=== PATIENT | female | born 1935 | race Caucasian/White ===

== ENCOUNTER → 2023-09-20 10:17 | Outpatient (REF) | payer MEDICARE, OTHER, SELFPAY | LOC: RAD 10:17 | PROVIDERS: ATTENDING PHYSICIAN Nurse Practitioner Adult Health; FAMILY PHYSICIAN Family Medicine | DX: R60.0 Localized edema (principal) | CPT/HCPCS: 93970 ==

== ENCOUNTER → 2023-12-27 07:29 | Outpatient (REF) | payer MEDICARE, OTHER, SELFPAY | LOC: RAD 07:29 | PROVIDERS: ATTENDING PHYSICIAN Nurse Practitioner Adult Health; FAMILY PHYSICIAN Family Medicine | DX: M79.675 Pain in left toe(s) (principal); Z91.81 History of falling | CPT/HCPCS: 73630 ==

== ENCOUNTER 2024-03-18 14:48 | Emergency (ER) | payer MEDICARE, OTHER, SELFPAY ==
[2024-03-18 14:50] VITALS: BP 152/79
[2024-03-18 15:09] LABS: % Basophils 0.4 % (0-2); % Immature Granulocytes 0.4 % (0-0.5); % Lymphocytes 13.3 % (20.5-51.1); % Monocytes 2.8 % (1.7-9.3); % Neutrophils 83.1 % (42.2-75.2); Absolute Monocytes 0.2 10^3/uL (0.1-0.6); Absolute Neutrophils 5.9 10^3/uL (1.4-6.5); Hematocrit 35.6 % (37.0-47.0); Hemoglobin 11.2 g/dL (12.0-16.0); Mean Corp Hgb Conc. 31.5 g/dL (33.0-37.0); Mean Corpuscular Hgb 27.5 pg (27.0-31.0); Mean Corpuscular Volume 87.3 fL (81.0-99.0); Mean Platelet Volume 9.5 fL (7.4-10.4); Nucleated Red Blood Cells % 0 %; Platelet Count 242 10^3/uL (130-400); Red Blood Cell Count 4.08 10^6/uL (4.20-5.40); Red Cell Dist. Width 15.1 % (11.5-14.5); White Blood Cell Count 7.2 10^3/uL (4.8-10.8)
[2024-03-18 15:24] LABS: ALT (SGPT) 121 U/L (0-35); AST (SGOT) 72 U/L (14-36); Albumin 4.1 g/dl (3.5-5.0); Alkaline Phosphatase 154 U/L (38-126); Blood Urea Nitrogen 35 mg/dl (7-17); Carbon Dioxide 23 mmol/L (22-30); Chloride 107 mmol/L (98-107); Glucose 145 mg/dl (70-99); Potassium 3.9 mmol/L (3.5-5.1); Sodium 141 mmol/L (135-145); Total Protein 6.9 g/dl (6.3-8.2); eGFR 54.53
[2024-03-18 17:32] VITALS: BMI 21.8
[2024-03-18 17:36] VITALS: BP 146/62
--- NOTE | 2024-03-18 17:55 | ED.GENMED ---
History of Present Illness
<Mercy Mg MD, Resident - Last Filed: 03/18/24 19:46>
General
Chief Complaint: Abdominal Symptoms
Time Seen by Provider: 03/18/24 17:24
History of Present Illness
History of Present Illness:
89 y/o female with pmhx of CKD stage III, HLp and hyperthyroidism presenting to the ED with nausea/vomiting and chest heaviness. Patient notes she woke up last night from sleep with pain in her upper back and diaphoresis. States has had similar pain
in that location before. This morning, she was feeling nauseous and had three episodes of vomiting and chills. Patient denies abdominal pain but notes has had non-bloody loose stools. This afternoon, she had chest heaviness across both hemithoraces
and pain under her diaphragm that gets worse with coughing. Patient denies fever, recent travel, recent surgery, urinary symptoms. States gets short of breath with exertion and feels like that with stress and also because of her thyroid disease.
Patient has not been taking her thyroid medication for the past few weeks after an increase in her liver enzymes. Of note, patient's was admitted here with CAUTI and tested positive for norovirus.
Past History
<Mercy Mg MD, Resident - Last Filed: 03/18/24 19:46>
Past History
ED Past Medical History: Hypercholesterolemia, Renal failure and Hyperthyroidism
Review of Systems
<Mercy Mg MD, Resident - Last Filed: 03/18/24 19:46>
Review of Systems
Constitutional: Reports night sweats and chills
EENT: Reports no symptoms
Respiratory: Reports no symptoms
Cardiac: Reports other (chest heaviness)
ABD/GI: Reports nausea, vomiting and diarrhea
: Reports no symptoms
Musculoskeletal: Reports no symptoms
Skin: Reports no symptoms
Neurological: Reports no symptoms
Endocrine: Reports no symptoms
Hematologic/Lymphatic: Reports no symptoms
Psychiatric: Reports no symptoms
Phy Exam
<Mercy Mg MD, Resident - Last Filed: 03/18/24 19:46>
Physical Exam
Physical Exam:
GENERAL: Alert, awake, in no apparent distress. Patient lying on the bed comfortably.
EYE: pupils equal and reactive.
NECK: Supple, no significant adenopathy.
ENT: o/p clr, mmm.
CARDIAC: Regular rate and rhythm.
LUNGS: Clear breath sounds bilaterally, no acute respiratory distress, no wheezes/rales/rhonchi.
ABDOMEN: Soft, upper abdominal tenderness, no r/g, no cvat.
NEUROLOGICAL: Alert and oriented, no focal neuro deficits.
SKIN: Warm and dry, skin intact.
MUSCULOSKELETAL: No edema, well perfused.
PSYCH: Normal and appropriate interaction.
Course
<Mercy Mg MD, Resident - Last Filed: 03/18/24 19:46>
Orders/Labs/Results
Orders:
Orders
03/18/24 14:53
Electrocardiogram (*1) Urgent
Reason for Study: Abdominal Pain
EKG- Treatment ONCE
03/18/24 15:00
Complete Blood Count/With Diff Urgent
Comprehensive Metabolic Panel Urgent
Free T4 Urgent
TSH Reflex To Free T4 Urgent
03/18/24 17:50
0.9% Sodium Chloride 1000 ml [Nss] 1,000 ml IV BOLUS
Ondansetron Injectable [Zofran] 4 mg IV NOW STA
03/18/24 17:56
Troponin I Urgent
03/18/24 18:37
Add On- LAB Urgent
Comments:: TSH reflex to Free T4
Tests Added?: TSH reflex to Free T4
Abnormal Lab Results
03/18/24
15:00
RBC 4.08 L 10^6/uL
(4.20-5.40)
Hgb 11.2 L g/dL
(12.0-16.0)
Hct 35.6 L %
(37.0-47.0)
MCHC 31.5 L g/dL
(33.0-37.0)
RDW 15.1 H %
(11.5-14.5)
Absolute Lymphs (auto) 1.0 L 10^3/uL
(1.2-3.4)
Neutrophils % 83.1 H %
(42.2-75.2)
Lymphocytes % 13.3 L %
(20.5-51.1)
BUN 35 H mg/dl
(7-17)
Glucose 145 H mg/dl
(70-99)
AST 72 H U/L
(14-36)
ALT 121 H U/L
(0-35)
Alkaline Phosphatase 154 H U/L
(38-126)
TSH (Reflex) < 0.02 L uIU/ml
(0.47-4.68)
03/18/24 15:00
03/18/24 15:00
Vital Signs
Initial and Last Documented VS:
Initial Vital Signs
Temp Pulse Resp BP Pulse Ox
97.9 F 100 16 152/79 100
03/18/24 14:50 03/18/24 14:50 03/18/24 14:50 03/18/24 14:50 03/18/24 14:50
Last Documented Vital Signs
Temp Pulse Resp BP Pulse Ox
98.9 F 83 24 134/61 100
03/18/24 17:36 03/18/24 19:15 03/18/24 19:15 03/18/24 19:00 03/18/24 19:15
<Bettye Damon DO - Last Filed: 03/18/24 20:18>
Orders/Labs/Results
Orders:
Orders
03/18/24 14:53
Electrocardiogram (*1) Urgent
Reason for Study: Abdominal Pain
EKG- Treatment ONCE
03/18/24 15:00
Complete Blood Count/With Diff Urgent
Comprehensive Metabolic Panel Urgent
Free T4 Urgent
TSH Reflex To Free T4 Urgent
03/18/24 17:50
0.9% Sodium Chloride 1000 ml [Nss] 1,000 ml IV BOLUS
Ondansetron Injectable [Zofran] 4 mg IV NOW STA
03/18/24 17:56
Troponin I Urgent
03/18/24 18:37
Add On- LAB Urgent
Comments:: TSH reflex to Free T4
Tests Added?: TSH reflex to Free T4
Abnormal Lab Results
03/18/24
15:00
RBC 4.08 L 10^6/uL
(4.20-5.40)
Hgb 11.2 L g/dL
(12.0-16.0)
Hct 35.6 L %
(37.0-47.0)
MCHC 31.5 L g/dL
(33.0-37.0)
RDW 15.1 H %
(11.5-14.5)
Absolute Lymphs (auto) 1.0 L 10^3/uL
(1.2-3.4)
Neutrophils % 83.1 H %
(42.2-75.2)
Lymphocytes % 13.3 L %
(20.5-51.1)
BUN 35 H mg/dl
(7-17)
Glucose 145 H mg/dl
(70-99)
AST 72 H U/L
(14-36)
ALT 121 H U/L
(0-35)
Alkaline Phosphatase 154 H U/L
(38-126)
TSH (Reflex) < 0.02 L uIU/ml
(0.47-4.68)
03/18/24 15:00
03/18/24 15:00
Vital Signs
Initial and Last Documented VS:
Initial Vital Signs
Temp Pulse Resp BP Pulse Ox
97.9 F 100 16 152/79 100
03/18/24 14:50 03/18/24 14:50 03/18/24 14:50 03/18/24 14:50 03/18/24 14:50
Last Documented Vital Signs
Temp Pulse Resp BP Pulse Ox
98.9 F 83 24 134/61 100
03/18/24 17:36 03/18/24 19:15 03/18/24 19:15 03/18/24 19:00 03/18/24 19:15
<Mercy Mg MD, Resident - Last Filed: 03/18/24 19:46>
MDM/Problems Addressed
Differential Diagnosis Includes:
ACS
PE
Cholelithiasis
Pancreatitis
Gastroenteritis
MDM/Problems Addressed:
- EKG, troponin
- IVF, Zofran
- CBC, CMP, Lipase
- Abd/pelvis CT
<Mercy Mg MD, Resident - Last Filed: 03/18/24 19:46>
*Critical Care Note
Total Time (30-74mins, 75-104mins- exclusive of procedures): Not Applicable
ED Attending Note
<Mercy Mg MD, Resident - Last Filed: 03/18/24 19:46>
-
Portions of this chart may have been created with voice recognition software.� Occasional wrong word or��sound alike� substitutions may have occurred due to the inherent limitations of voice recognition software.
<Bettye Damon DO - Last Filed: 03/18/24 20:18>
ED Attending Note
Patient seen and examined by attending physician: Yes
I performed the substantive portion of visit, reviewed & personally made and approve the management plan that is documented in note by myself or MARCIE.: Yes
I performed a history and physical exam of patient and discussed management with resident, I reviewed resident's note and agree with documented findings and plan of care.: Yes
ED Attending Note:
89-year-old female with history of chronic kidney disease, hyperlipidemia, hypothyroidism presenting to the emergency department for nausea, vomiting, diarrhea, chest heaviness. Patient reports symptoms started last night. Also reported some pain
in her back. Reports the back pain is chronic, however the vomiting or diarrhea as of this morning was new. She also noted some chills. Reports that her has had some similar symptoms with diarrhea, recently admitted to the hospital with urosepsis
and also incidentally found to have norovirus. Denies any blood in stool. Denies any cough or abdominal pain. Vital signs significant for mild hypertension.
On exam, patient is resting comfortably, no acute distress or discomfort. Patient is nontoxic in appearance. EKG obtained on arrival, sinus rhythm without acute evidence of ischemia or significant change from prior. The chest pressure is overall
improved, lower suspicion for ACS time. Abdomen is soft, nondistended, nontender. Given patient's symptoms and exposure to a known positive patient with norovirus, suspected norovirus. Patient without any clinical signs of severe dehydration.
Plan for screening laboratory analysis as well as troponin. Will treat patient therapeutically with Zofran and fluids.
19:30 - Patient's labs are relatively unremarkable with the exception of elevated liver function. Patient reports that this is known, was on a medication for her thyroid, was taken off of it last week given elevation of her liver function and
suspected medication reaction. No focal tenderness to the right upper quadrant or elevation of bilirubin, without concern for significant acute liver dysfunction. Troponin is negative. Pending TSH, however otherwise remains hemodynamically stable
with plan for outpatient supportive therapy
20:10 -patient reporting symptom improvement. TSH undetectable, however free T4 within normal limits. At this time feel stable for discharge with continued outpatient follow-up and management of her thyroid disease and supportive care for her
gastroenteritis. Return precautions discussed and patient verbalized understanding
Discharge Plan
Departure
Prescriptions:
No Action
cholecalciferol (vitamin D3) [Vitamin D3] 400 UNITS tablet
1,000 units PO DAILY
mrjebtnhftpc-Wo-tkqn-minerals [One Daily Women's] 1 EACH tablet
2 tab PO DAILY
coenzyme Q10 [Co Q-10] 200 MG capsule
200 mg PO DAILY
calcium carbonate-vitamin D3 1 EACH capsule
1 cap PO DAILY
biotin 5,000 MCG tablet,disintegrating
5,000 mcg PO DAILY
Fiber Gummies
1 gum PO DAILY
magnesium oxide 400 MG tablet
400 mg PO DAILY
mupirocin 1 APPLIC ointment
1 applic intranasal BID Qty: 1 0RF
Patient Comments:
bidx3 days, last dose this am 07/26
sennosides [senna] 1 TABLET tablet
2 tab PO BID 0RF
aspirin 325 MG tablet
325 mg PO DAILY Qty: 28 0RF
Rx Instructions:
Take daily x4 weeks for blood clot prevention.
magnesium hydroxide 30 ML suspension
30 ml PO DAILYPRN PRN (Reason: constipation) Qty: 7 0RF
Rx Instructions:
Take as needed for constipation unrelieved by Colace and Senna.
docusate sodium 100 MG capsule
100 mg PO BID 0RF
gabapentin 100 MG capsule
200 mg PO TID Qty: 30 0RF
acetaminophen 500 MG tablet
1,000 mg PO Q6H Qty: 60 0RF
Rx Instructions:
Do not exceed >4000 mg daily.
oxycodone 5 MG tablet
5 mg PO Q6HPRN PRN (Reason: moderate-severe pain) Qty: 30 0RF
Rx Instructions:
1 tab moderate pain or 2 if pain severe
Dx total joint replacement
ongoing therapy
famotidine 20 MG tablet
20 mg PO HS Qty: 30 0RF
Rx Instructions:
Take nightly while on Aspirin.
amlodipine-olmesartan 1 EACH tablet
1 tab PO DAILY Qty: 0 0RF
Rx Instructions:
Hold if systolic blood pressure <130 while on Oxycodone.
turmeric 400 MG capsule
1,000 mg PO DAILY Qty: 0 0RF
Rx Instructions:
Resume in 1 week.
Referrals:
Tiny Vigil MD [Family Provider] -
Interventions
Interventions:
*Risk Screen - Suicide Last Done: 03/18/24 14:50
*General Assessment Last Done: 03/18/24 14:50
*Neglect/Abuse Screening Last Done: 03/18/24 14:50
*ED COVID-19 Vaccine History Last Done: 03/18/24 17:46
LV-Vdilgu-Ojhmvworze Assessment Last Done: 03/18/24 17:46
Discharge Date and Time
Print Language: KYRGYZ
[2024-03-18 18:00] VITALS: BP 128/53
[2024-03-18] MEDS: NSS 1000 IV (18:01)
[2024-03-18] MEDS: ZOFRAN 4 MG IV (18:03)
[2024-03-18 18:29] LABS: Troponin I < 0.012 ng/ml
[2024-03-18 19:00] VITALS: BP 134/61
[2024-03-18 19:40] LABS: TSH Reflex To Free T4 < 0.02 uIU/ml (0.47-4.68)
[2024-03-18 20:00] VITALS: BP 124/57
[2024-03-18 20:11] LABS: Free T4 1.45 ng/dl (0.78-2.19)
== END 2024-03-18 20:55 | disposition home or self-care (01) ==
LOC: EMR 14:48
PROVIDERS: Physician Assistant; EMERGENCY PHYSICIAN Student in an Organized Health Care Education/Training Program; FAMILY PHYSICIAN Family Medicine
DX: K52.9 Noninfective gastroenteritis and colitis, unspecified (principal); R07.89 Other chest pain; N18.30 Chronic kidney disease, stage 3 unspecified; E78.00 Pure hypercholesterolemia, unspecified; E07.89 Other specified disorders of thyroid; G89.29 Other chronic pain
CPT/HCPCS: 96374; 96361; 99284; 80053; 84439; 84443; 84484; 85025; 93005

== ENCOUNTER → 2024-06-03 07:09 | Outpatient (REF) | payer MEDICARE, OTHER, SELFPAY | LOC: RAD 07:09 | PROVIDERS: ATTENDING PHYSICIAN Internal Medicine Endocrinology, Diabetes & Metabolism; FAMILY PHYSICIAN Family Medicine | DX: E05.90 Thyrotoxicosis, unspecified without thyrotoxic crisis or storm (principal); E04.2 Nontoxic multinodular goiter | CPT/HCPCS: 76536 ==

== ENCOUNTER → 2024-06-11 06:39 | Outpatient (REF) | payer MEDICARE, OTHER, SELFPAY | LOC: RAD 06:39 | PROVIDERS: ATTENDING PHYSICIAN Internal Medicine Endocrinology, Diabetes & Metabolism; FAMILY PHYSICIAN Family Medicine | DX: E05.90 Thyrotoxicosis, unspecified without thyrotoxic crisis or storm (principal) | CPT/HCPCS: 78014; A9516 ==

== ENCOUNTER 2024-07-10 02:11 | Emergency (ER) | payer MEDICARE, OTHER, SELFPAY ==
[2024-07-10 02:13] VITALS: BP 178/83
[2024-07-10 02:14] VITALS: BP 178/83
[2024-07-10 02:36] LABS: % Basophils 0.9 % (0-2); % Eosinophils 3.5 % (0-6); % Immature Granulocytes 0.2 % (0-0.5); % Lymphocytes 42.1 % (20.5-51.1); % Monocytes 8.5 % (1.7-9.3); % Neutrophils 44.8 % (42.2-75.2); Absolute Eosinophils 0.2 10^3/uL (0-0.7); Absolute Lymphocytes 1.9 10^3/uL (1.2-3.4); Absolute Monocytes 0.4 10^3/uL (0.1-0.6); Absolute Neutrophils 2.1 10^3/uL (1.4-6.5); Hematocrit 35.1 % (37.0-47.0); Hemoglobin 11.5 g/dL (12.0-16.0); Mean Corp Hgb Conc. 32.8 g/dL (33.0-37.0); Mean Corpuscular Hgb 28.8 pg (27.0-31.0); Mean Platelet Volume 9.3 fL (7.4-10.4); Nucleated Red Blood Cells % 0 %; Platelet Count 183 10^3/uL (130-400); Red Blood Cell Count 3.99 10^6/uL (4.20-5.40); Red Cell Dist. Width 13.7 % (11.5-14.5); White Blood Cell Count 4.6 10^3/uL (4.8-10.8)
[2024-07-10 03:00] LABS: ALT (SGPT) 30 U/L (0-35); AST (SGOT) 35 U/L (14-36); Albumin 4.3 g/dl (3.5-5.0); Alkaline Phosphatase 139 U/L (38-126); Blood Urea Nitrogen 34 mg/dl (7-17); Calcium 9.6 mg/dl (8.4-10.2); Carbon Dioxide 27 mmol/L (22-30); Chloride 108 mmol/L (98-107); Estimated Creatinine Clearance 31 ml/min; Glucose 98 mg/dl (70-99); Potassium 4.4 mmol/L (3.5-5.1); Sodium 142 mmol/L (135-145); Total Bilirubin 0.6 mg/dl (0.2-1.3); Total Protein 6.9 g/dl (6.3-8.2); eGFR 48.63
[2024-07-10 03:11] LABS: NT-proBNP 205 pg/ml; Troponin I < 0.012 ng/ml
[2024-07-10 03:15] VITALS: BP 183/72
[2024-07-10 04:00] VITALS: BP 178/75
--- NOTE | 2024-07-10 04:48 | ED.GENMED ---
History of Present Illness
General
Chief Complaint: Chest Pain
Source: patient
Exam Limitations: none
Time Seen by Provider: 07/10/24 02:55
Nursing documentation reviewed up to this point in time: agreed with
History of Present Illness
History of Present Illness:
89 y/o F with h/o hyperthyroidism, known to dr javier
htn, hld, ckd
was formerly on methimazole but wasn't toelrating it
she was switched to PTU about 1 mo ago
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
probably feeling more stress recently than before
she has woken up each night with a few minutes of chest pressure that is minimal 4/10 and goes away spontaneously
she feels a bit anxious and is drenched in sweat
pt is not short of breath
she says throughotu the day she has felt fine and has been distracted and not noticed symptosm
she also feels intermittently sometimes she gets lightheaded and loses her balance and leans on something
but this has been about 2 weeks
no weakenss, headache, vomiting, confusion, other balance problems
she probably hasn't been eating/drinking normally
Past History
Past History
ED Past Medical History: Hypercholesterolemia, Renal failure and Hyperthyroidism
Review of Systems
Review of Systems
Allergies reviewed?: Yes
All Other Systems: Not applicable
Phy Exam
Physical Exam
Physical Exam:
GENERAL: Alert , in no apparent distress, well appearing, mild anxious
EYE: pupils equal and reactive
NECK: Supple
ENT: o/p clr, mmm.
CARDIAC: Regular rate and rhythm .no edema
LUNGS: Clear breath sounds bilaterally, no acute respiratory distress, no wheezes/rales/rhonchi
ABDOMEN: Soft, without focal tenderness, no r/g, no cvat, normal bowel sounds
NEUROLOGICAL: Alert and oriented, no focal neuro deficits, cn intact, 5/5 strength/sensation intact
SKIN: Warm and dry, skin intact.
MUSCULOSKELETAL: No edema, well perfused. neg dominick's sign
PSYCH: anioxus.
Course
Orders/Labs/Results
Orders:
Orders
07/10/24 02:14
Electrocardiogram (*1) Urgent
Reason for Study: Other
Other Reason for Exam: Respiratory Distress
Cardiac Monitoring- Treatment ONCE
EKG- Treatment ONCE
IV Insert/Care/Rem.- Treatment PRN
CR Chest - 2 Views Urgent
Comment:
Reason For Exam: respiratory distress
O2 Therapy [RESP] Urgent
Titrate/Wean O2 to maintain O2 sat greater than (%): 93
Special Instructions: TO MAINTAIN CONTINUOUS O2 SATS >/= 93%
Pulse Ox/cont/shift [RESP] Urgent
Quantity: 1
Special Instructions: continuous pulse ox
07/10/24 02:27
Complete Blood Count/With Diff Urgent
Comprehensive Metabolic Panel Urgent
NT-proBNP Urgent
Troponin I Urgent
07/10/24 03:37
Add On- LAB Urgent
Tests Added?: tsh reflex t4
07/10/24 05:29
Electrocardiogram (*1) Urgent
Reason for Study: Chest Pain
EKG- Treatment ONCE
07/10/24 05:36
TSH Reflex To Free T4 Urgent
Troponin I Urgent
Abnormal Lab Results
07/10/24
02:27
WBC 4.6 L 10^3/uL
(4.8-10.8)
RBC 3.99 L 10^6/uL
(4.20-5.40)
Hgb 11.5 L g/dL
(12.0-16.0)
Hct 35.1 L %
(37.0-47.0)
MCHC 32.8 L g/dL
(33.0-37.0)
Chloride 108 H mmol/L
(98-107)
BUN 34 H mg/dl
(7-17)
Creatinine 1.1 H mg/dL
(0.6-1.0)
Alkaline Phosphatase 139 H U/L
(38-126)
07/10/24 02:27
07/10/24 02:27
Vital Signs
Initial and Last Documented VS:
Initial Vital Signs
BP
178/83
07/10/24 02:13
Last Documented Vital Signs
Temp Pulse Resp BP Pulse Ox
36.3 C 53 20 178/72 99
07/10/24 02:14 07/10/24 06:14 07/10/24 06:14 07/10/24 06:14 07/10/24 06:14
MDM/Problems Addressed
Differential Diagnosis Includes:
acs, anxiety, GERD
ED Attending Note
-
Portions of this chart may have been created with voice recognition software.� Occasional wrong word or��sound alike� substitutions may have occurred due to the inherent limitations of voice recognition software.
Discharge Plan
Departure
Prescriptions:
No Action
cholecalciferol (vitamin D3) [Vitamin D3] 400 UNITS tablet
1,000 units PO DAILY
One Daily Women's 1 EACH tablet
1 tab PO DAILY
calcium carbonate-vitamin D3 1 EACH capsule
1 cap PO DAILY
biotin 5,000 MCG tablet,disintegrating
5,000 mcg PO DAILY
Fiber Gummies
1 gum PO DAILY
magnesium hydroxide 30 ML suspension
30 ml PO DAILYPRN PRN (Reason: constipation) Qty: 7 0RF
Rx Instructions:
Take as needed for constipation unrelieved by Colace and Senna.
olmesartan-hydrochlorothiazide 20-12.5 mg Tablet
1 tab PO DAILY
Referrals:
Tiny Vigil MD [Family Provider] -
Interventions
Interventions:
*Risk Screen - Suicide Last Done: 07/10/24 02:14
*General Assessment Last Done: 07/10/24 02:14
*Neglect/Abuse Screening Last Done: 07/10/24 02:14
*ED- Fall Risk Assessment Last Done: 07/10/24 02:14
ED- Cardiac Assessment Last Done: 07/10/24 02:38
Discharge Date and Time
Print Language: ARMENIAN
[2024-07-10 05:00] VITALS: BP 163/69
[2024-07-10 06:14] VITALS: BP 178/72
[2024-07-10 06:16] LABS: Troponin I < 0.012 ng/ml
[2024-07-10 06:35] LABS: TSH Reflex To Free T4 1.97 uIU/ml (0.47-4.68)
== END 2024-07-10 07:26 | disposition home or self-care (01) ==
LOC: EMR 02:11
PROVIDERS: Physician Assistant; EMERGENCY PHYSICIAN Student in an Organized Health Care Education/Training Program; FAMILY PHYSICIAN Family Medicine
DX: R07.89 Other chest pain (principal); E86.0 Dehydration; I12.9 Hypertensive chronic kidney disease with stage 1 through stage 4 chronic kidney disease, or unspecified chronic kidney disease; N18.9 Chronic kidney disease, unspecified; E78.00 Pure hypercholesterolemia, unspecified; E03.9 Hypothyroidism, unspecified; Z63.79 Other stressful life events affecting family and household
CPT/HCPCS: 99285; 71046; 80053; 83880; 84443; 84484; 85025; 93005

== ENCOUNTER → 2024-08-14 07:09 | Outpatient (REF) | payer MEDICARE, OTHER, SELFPAY | LOC: RCS 07:09 | PROVIDERS: ATTENDING PHYSICIAN Family Medicine | DX: R07.89 Other chest pain (principal); R94.31 Abnormal electrocardiogram [ECG] [EKG] | CPT/HCPCS: 93306 ==

== ENCOUNTER → 2025-03-15 13:13 | Outpatient (REF) | payer MEDICARE, OTHER, SELFPAY | LOC: RAD 13:13 | PROVIDERS: ATTENDING PHYSICIAN Family Medicine | DX: R19.8 Other specified symptoms and signs involving the digestive system and abdomen (principal) | CPT/HCPCS: 74177; Q9967 ==

== ENCOUNTER → 2025-04-07 13:45 | Outpatient (REF) | payer MEDICARE, OTHER, SELFPAY | LOC: RCS 13:45 | PROVIDERS: ATTENDING PHYSICIAN Family Medicine | DX: R07.89 Other chest pain (principal); R63.5 Abnormal weight gain; I08.0 Rheumatic disorders of both mitral and aortic valves; R19.8 Other specified symptoms and signs involving the digestive system and abdomen | CPT/HCPCS: 71046; 93306 ==